=== PATIENT | female | born 2005 | race Caucasian/White ===

== ENCOUNTER 2025-07-29 18:24 | Emergency (ER) | payer MEDICAID ==
[~2025-07-29] VITALS: Ht 152.4 cm; Wt 59.0 kg
[2025-07-29 19:55] LABS: PLATELET COUNT (AUTO) 310 K/uL (150-450); RED BLOOD CELL COUNT(AUTO) 4.47 MIL/uL (4.0-5.2); RED CELL DISTRIBUTION WIDTH 13.5 % (11.5-15.0); WHITE BLOOD COUNT (AUTO) 9.7 K/uL (4.3-11.0)
[2025-07-29 20:05] LABS: CALCIUM, SERUM 8.9 mg/dL (8.5-10.1); CREATININE 0.7 mg/dL (0.6-1.3); SODIUM SERUM 142.0 mmol/L (136-145); UREA NITROGEN, BLOOD 14.0 mg/dL (7-18)
[2025-07-29 20:25] LABS: APPEARANCE,URINE CLEAR (CLEAR); BLOOD, URINE NEGATIVE Ery/uL (NEGATIVE); LEUKOCYTE ESTERASE ,URINE NEGATIVE (NEGATIVE); NITRITE, URINE NEGATIVE (NEGATIVE); UGLUCOSE NEGATIVE (NEGATIVE)
[2025-07-29 20:27] LABS: PREGNANCY TEST URINE QUAL NEGATIVE (NEGATIVE)
[2025-07-29 20:57] VITALS: BP 126/78; TEMP 98.7; O2SAT 100
== END 2025-07-29 20:57 | disposition home or self-care (01) ==
LOC: ER 18:57
DX: N92.0 Excessive and frequent menstruation with regular cycle (principal); Z79.3 Long term (current) use of hormonal contraceptives
CPT/HCPCS: 36415; 76856-TC; 80048-TC; 84703-TC; 85025-TC